=== PATIENT | female | born 1945 | race Caucasian/White ===

== ENCOUNTER 2022-08-30 08:02 | Outpatient (CLI) | payer MEDICARE, SELFPAY ==
--- NOTE | 2022-08-30 08:14 | ECG_ITS ---
Measurements Intervals [employer] Rate: 72 P: 59 IA: 204 QRS: -37 QRSD: 110 T: 36 QT: 390 QTc: 427 Interpretive Statements SINUS RHYTHM MARKED LEFT AXIS DEVIATION [QRS AXIS < -30] VOLTAGE CRITERIA FOR LVH [MEETS CRITERIA IN ONE OF: R(aVL), S(V1), R(V5), R(V5/V6)+S(V1)] NO PREVIOUS ECG AVAILABLE FOR COMPARISON Electronically Signed On 08-30-2022 14:43:58 CDT by Abimael Ash M.D.
[2022-08-30 08:48] LABS: Anion Gap 9 mmol/L (8-16); Blood Urea Nitrogen 16 mg/dL (7-17); Calcium 9.5 mg/dL (8.4-10.2); Carbon Dioxide 29 mmol/L (22-30); Chloride 104 mmol/L (98-107); Estimated Glomerular Filt Rate > 60; Glucose 184 mg/dL (65-110); Potassium 4.2 mmol/L (3.4-5.0); Sodium 142 mmol/L (137-145)
== END 2022-08-30 08:03 | disposition home or self-care (01) ==
LOC: ANHSURGERY 08:07
PROVIDERS: Anesthesiology; PCP Internal Medicine; Visit Provider Orthopaedic Surgery
DX: E11.9 Type 2 diabetes mellitus without complications (principal); Z01.818 Encounter for other preprocedural examination
CPT/HCPCS: 36415; 80048; 93005

== ENCOUNTER 2022-09-03 02:21 | Day surgery (SDC) | payer MEDICARE, SELFPAY ==
[2022-08-23 12:37] VITALS: BMI 39.3
--- NOTE | 2022-08-23 12:50 | PC.NURSE ---
PRE-OP INSTRUCTIONS, PLEASE READ CAREFULLY Report to the Outpatient Waiting Room, entrance under the green pavilion located off [facility], at time _0930_ on date _09/03/22_. OR Time: _1130_. Time changes happen often and if your time is changed the preop area will call you the afternoon before. - You and your visitor will be asked to self-screen and do not enter if you have any COVID symptoms. - Only one visitor and NO children visitors are allowed at this time. - A mask is required within the hospital. Patients may have clear liquids (water, carbonated beverages, clear teas, apple juice) until 3 hours prior to surgery (0830 AM) with a maximum of 20 ounces. - No food from midnight until time of surgery Take the following medications with a SIP of water the morning of surgery: _1/2 DOSE OF AM INSULIN, TYLENOL IF NEEDED__ Medications to discontinue _ASPIRIN PER DR JAMES'S INSTRUCTIONS, BIOTIN 3 DAYS PRIOR PER ANESTHESIA, Date to take last dose 08/28/22_ Please no make-up, nail bengali, hairspray, perfume, deodorant, or body powder the day of surgery. No jewelry (including any body piercings) or valuables the day of surgery, leave them at home. Please take a shower or bath the night before, or the morning of, surgery with an antibacterial soap. Wear comfortable, loose fitting clothing. - Jewelry must be removed prior to entering the operating room. Rings and piercings that are not removed may be cut off. - The hospital will not accept responsibility for valuables. - Please leave all valuables, including medications, at home the day of surgery. If you are going home after surgery, a licensed m48/m60 tank driver must drive you home. - NO public transportation without another adult. - We recommend that an adult stay with you for 24 hours following discharge. - We also recommend that you do not drive, make important decision, drink alcoholic beverages, or take any drugs that were not prescribed by your health care provider for at least 24 hours after your discharge time. Follow any additional instructions given to you from your surgeon. If you or anyone in your household have experienced Covid symptoms in the past week, please notify your surgeon or the nurse liaison at the phone number below for possible testing. Telephone instructions given to __PT___and asked if any additional questions and then verbalized understanding. Patient advised to call surgeon office or pre surgery nurse liaison [phone] if any additional questions.
[2022-09-03] VITALS (9 sets, daily range): BP systolic 125–168; BP diastolic 61–72; PULSE 66–79; RESP 9–18; TEMP 36.6–36.7; O2SAT 95–100
[2022-09-03] MEDS: ACETAMINOPHEN 500 MG TABLET 1000 MG PO (10:20)
--- NOTE | 2022-09-03 10:41 | WPDANESEPPF ---
Anes - Initial Pre Proc Eval Procedure: Operation Date: 09/03/22 11:30 Proposed Procedures p Right Knee Arthroscopy, Partial Meniscectomy - Scott Alcocer MD Date/Time: 09/03/22 10:41 Surgeon: Scott Alcocer MD Pre Op Diagnosis: right Knee medial meniscus tear Patient Data Age: 76 Gender: F Height: 1.68 m Weight: 110.45 kg Allergies Allergy/AdvReac Type Severity Reaction Status Date / Time FD and C no.5 (tartrazine) Allergy Severe difficulty Verified 08/30/22 09:22 breathing methylprednisolone Allergy Intermediate acute Verified 08/30/22 09:22 pancreatitis codeine Allergy Mild nausea Verified 08/30/22 09:22 hydrocodone Allergy Mild vomitting Verified 08/30/22 09:22 hydromorphone [From Dilaudid] Allergy Mild vomitting Verified 08/30/22 09:22 tramadol Allergy Mild vomitting Verified 08/30/22 09:22 tree nut Allergy Mild itching Verified 09/03/22 10:13 Home Medications Medication Instructions Recorded Confirmed Type aspirin 81 mg tablet,delayed 81 mg PO DAILY 02/15/22 09/03/22 History release (Adult Aspirin Regimen) atorvastatin 10 mg tablet 10 mg PO DAILY 02/15/22 09/03/22 History biotin 10,000 mcg disintegrating 10,000 mcg PO DAILY 02/15/22 09/03/22 History tablet insulin lispro 100 unit/mL See Rx Instructions .Route .COMPLEX 02/15/22 09/03/22 History subcutaneous pen (Humalog KwikPen (U-100) Insulin) omeprazole 20 mg tablet,delayed 20 mg PO DAILY 02/15/22 09/03/22 History release acetaminophen 650 mg 650 mg PO Q8H PRN Pain 04/19/22 09/03/22 History tablet,extended release (Tylenol Arthritis Pain) Patient hx anesthesia problems: none Family hx anesthesia problems: none Results Review: All pre-operative results and documents have been reviewed as part of the pre-operative evaluation. [facility] Past Medical History Medical History Allergies Complex tear of medial meniscus of right knee Diabetes Last A1c in January 2022 - 7.8 GERD (gastroesophageal reflux disease) History of DVT (deep vein thrombosis) Osteoarthritis of right knee Thyroid nodule Surgical History Surgical History History of breast biopsy History of cholecystectomy History of partial thyroidectomy Family History Family History Father Alcoholism Mother Depression Anxiety CHF (congestive heart failure) Grandparent Alcoholism Social History Social History Smoking status: Never smoker Second hand tobacco smoke exposure: No Alcohol intake: never Substance use: never Substance use type: does not use Living arrangements: with family Spiritual care concerns: No Anes - Eval Final PreProcedure Day of Procedure 09/03/22 10:41 Patient weight: obese Heart: regular rate and rhythm Lungs: clear to auscultation Airway: Mallampati scale class II Neurological: alert and oriented Last oral intake: >/= 8 hours ASA classification: III Emergent: no Anesthetic plan: proceed Anesthesia type and monitoring: general LMA and standard monitoring Results Review: All pre-operative results and documents have been reviewed as part of the pre-operative evaluation. Informed Consent: The patient's anesthetic plan and its attendant risks and benefits were discussed with the patient/family/POA. Questions were solicited and answers provided to the satisfaction of the patient/family/POA.
[2022-09-03] MEDS: LACTATED RINGERS 1,000 ML 30 ML IV CONT ×2 (10:50→12:59)
[2022-09-03 11:01] LABS: Glucose Point of Care 124 mg/dl (65-105)
[2022-09-03] MEDS: KETOROLAC 15 MG/ML VIAL (*BKC) IV PUSH (11:09)
--- NOTE | 2022-09-03 11:18 | WPDHPUPDATE1 ---
History and Physical Update Update Date/Time: 09/03/22 11:18 History and Physical has been reviewed, including an updated exam of the patient. There are NO changes in the patient's condition. Risks, benefits, and alternatives have been discussed and questions answered. Patient agrees to proceed with procedure.
[2022-09-03] MEDS: ceFAZolin 2 GM/D5W 50 ML 2 GM/50 ML BAG IVPB (11:49)
[2022-09-03] MEDS: LIDOCAINE HCL 1% PF 30 ML VIAL INFILTRATE (12:19)
[2022-09-03 13:00] LABS: Glucose Point of Care 85 mg/dl (65-105)
--- NOTE | 2022-09-03 13:01 | W.PM.PROC2 ---
Procedure Note - Detailed Date of Procedure 09/03/22 Pre-op Diagnosis right Knee medial meniscus tear Post-op Diagnosis Same Procedure Performed Right knee arthroscopy with partial medial meniscectomy Surgeon Scott Alcocer MD Anesthesia General Description of Procedure The patient was identified and proper site identified and she was taken to the operating room, transferred to the OR table placing her supine taking care to pad the torso and extremities. After general anesthetic induction and intubation, a nonsterile tourniquet was placed high on the right thigh but was not inflated. The right lower extremity was positioned, prepped and draped in usual sterile fashion. 10 cc of 1% lidocaine was injected into the subcutaneous tissue in the area of the portals at start of the procedure, and an additional 10 at the end. The portals were established and the arthroscopy was carried out. Articular cartilage anteriorly and medially had extensive grade 2 and three changes. Primarily grade 2 changes laterally. Fraying of the lateral meniscus apically noted but meniscus otherwise stable. Anterior posterior cruciate ligaments in continuity. Complex tearing the medial meniscus from posterior horn into the midbody along with thickened infrapatellar fat pad overlying the anterior horn of the medial meniscus was noted. The unstable meniscus was contoured back to a stable rim with basket forceps and a shaver. The shaver was also used to debride the scarred infrapatellar fat pad. Arthrocare Wand was used for hemostasis. The knee was flushed with a copious amount of arthroscopic fluid and equipment was removed. Portals were closed with three O nylon suture and a sterile dressing was applied. She tolerated the procedure well, was awakened, extubated and taken to recovery area in stable condition. There were no known intraoperative complications. Estimated blood loss was negligible; she received perioperative antibiotics. Estimated Blood Loss 5 Drains No Packing No Pathology None sent Complications No immediate complications Condition Stable Disposition PACU
[2022-09-03] MEDS: fentaNYL CITRATE INJ (*CRX) 100 MCG/2 ML VIAL 25 MCG IV PUSH ×2 (13:44→13:47)
[2022-09-03] MEDS: ONDANSETRON INJ 4 MG/2 ML VIAL IV PUSH (13:51)
== END 2022-09-03 14:56 | disposition home or self-care (01) ==
PROVIDERS: PCP Internal Medicine; Visit Provider Orthopaedic Surgery
PROC: (CPT 29870; principal; 2022-09-03 11:30)
DX: M23.321 Other meniscus derangements, posterior horn of medial meniscus, right knee (principal); E11.9 Type 2 diabetes mellitus without complications; K21.9 Gastro-esophageal reflux disease without esophagitis; Z86.718 Personal history of other venous thrombosis and embolism; E66.9 Obesity, unspecified; Z68.38 Body mass index [BMI] 38.0-38.9, adult; Z79.82 Long term (current) use of aspirin; Z79.4 Long term (current) use of insulin
CPT/HCPCS: 29881; 36415; 80048; 82948; 93005; A9270; J0690; J1885; J2250; J2405; J2704; J3010; J7120

== ENCOUNTER 2023-03-28 10:57 | Outpatient (CLI) | payer MEDICARE, SELFPAY | END 2023-03-28 10:58 | disposition home or self-care (01) | LOC: ANHAUDIO 10:57 | PROVIDERS: PCP Internal Medicine; Visit Provider Otolaryngology | DX: H90.3 Sensorineural hearing loss, bilateral (principal); H61.21 Impacted cerumen, right ear | CPT/HCPCS: 92557; 92567 ==

== ENCOUNTER 2024-05-08 12:42 | Outpatient (CLI) | payer MEDICARE, SELFPAY ==
--- NOTE | ~2024-05-08 | MR_ITS ---
EXAMINATION: MR knee LT wo con DATE: 05/08/2024 13:37 INDICATION: Other tear of medial meniscus, current injury. Left knee pain. TECHNIQUE: Magnetic resonance imaging (MRI) of the left knee was performed without intravenous contra st. Sequences included axial PD-weighted FS FSE, coronal PD-weighted FSE and PD-weighted FS FSE, sagi ttal PD-weighted FSE, and sagittal T2-weighted FS FSE. COMPARISON: Left knee radiographs 05/05/2024 FINDINGS: Medial compartment: There is a radial tear of posterior horn of medial meniscus. There is partial-thickness cartilage los s of femoral condyle, deep of the central articular surface. There is shallow partial-thickness carti maliha loss of tibial condyle. There is subchondral sclerosis in tibial condyle. Osteophytes are noted. Lateral compartment: Lateral meniscus is normal. Lateral compartment cartilage is normal. Osteophytes are noted. Patellofemoral compartment: There is deep partial-thickness cartilage loss of patellar median ridge and lateral facet with mild s ubchondral edema-like signal intensity. There is shallow partial-thickness cartilage loss of patellar medial facet. There is full-thickness cartilage loss of central trochlea with mild subchondral edema -like marrow signal intensity. Osteophytes are noted. Ligaments and tendons: The anterior and posterior cruciate demonstrate normal. Medial collateral ligament and lateral collat eral ligament complex are intact. There is mild patellar tendinopathy. Fluid: There is a small knee joint effusion. There is a small Jacome's cyst. There is mild prepatellar and alexis perficial infrapatellar bursitis. IMPRESSION: 1. Severe chondrosis of patellofemoral compartment and moderate chondrosis of medial compartment. 2. Tear of medial meniscus. 3. Small knee joint effusion. 4. Small Jacome's cyst. Reviewed, dictated and finalized at location E. IMPRESSION: 1. Severe chondrosis of patellofemoral compartment and moderate chondrosis of m edial compartment. 2. Tear of medial meniscus. 3. Small knee joint effusion. 4. Small Jacome's cyst.
== END 2024-05-08 12:43 ==
LOC: GOSHIMG 12:43
PROVIDERS: PCP Internal Medicine; Visit Provider Orthopaedic Surgery
DX: S83.242A Other tear of medial meniscus, current injury, left knee, initial encounter (principal); X58.XXXA Exposure to other specified factors, initial encounter; M71.22 Synovial cyst of popliteal space [Baker], left knee; M25.462 Effusion, left knee
CPT/HCPCS: 73721

== ENCOUNTER 2024-06-22 15:14 | Outpatient (CLI) | payer MEDICARE, SELFPAY ==
--- NOTE | 2024-06-22 15:29 | ECG_ITS ---
Test Date: 2024-06-22 15:42:45 Measurements Intervals [place] Rate: 85 P: 75 TN: 208 QRS: -35 QRSD: 118 T: 55 QT: 353 QTc: 422 Interpretive Statements SINUS RHYTHM LEFT ANTERIOR SUPERIOR HEMIBLOCK VOLTAGE CRITERIA FOR LVH ABNORMAL ECG No previous ECG available for comparison Electronically Signed On 06-22-2024 17:20:40 CDT by Maycol Cortes M.D.
[2024-06-22 16:07] LABS: Anion Gap 9 mmol/L (4-12); Blood Urea Nitrogen 14 mg/dL (7-17); Calcium 9.7 mg/dL (8.4-10.2); Carbon Dioxide 27 mmol/L (22-30); Chloride 104 mmol/L (98-107); Estimated Glomerular Filt Rate > 60; Glucose 100 mg/dL (65-110); Potassium 3.6 mmol/L (3.4-5.0); Sodium 140 mmol/L (137-145)
== END 2024-06-22 15:15 | disposition home or self-care (01) ==
LOC: ANHSURGERY 15:17
PROVIDERS: Anesthesiology; PCP Internal Medicine; Visit Provider Orthopaedic Surgery
DX: E11.9 Type 2 diabetes mellitus without complications (principal); I10 Essential (primary) hypertension; R94.31 Abnormal electrocardiogram [ECG] [EKG]
CPT/HCPCS: 36415; 80048; 93005

== ENCOUNTER 2024-06-24 01:38 | Day surgery (SDC) | payer MEDICARE, SELFPAY ==
[2024-06-22 09:49] VITALS: BMI 40.4
--- NOTE | 2024-06-22 09:50 | PC.NURSE ---
Report to the Outpatient Waiting Room, entrance under the green pavilion located off [facility], at time _0800_ on date _[id number]_. Planned Procedure Time: _1000_. Time changes happen often and if your time is changed the preop area will call you the afternoon before. - You and your visitor will be asked to self-screen and do not enter if you have any COVID symptoms. - A mask is optional within the hospital at this time. Patients may have clear liquids (water, carbonated beverages, clear teas, apple juice) until 3 hours prior to surgery with a maximum of 20 ounces. - No food from midnight until time of surgery Take the following medications with a SIP of water the morning of surgery: No pills and no insulin. DO NOT STOP ANY OF YOUR OTHER PRESCRIPTION MEDICATIONS PRIOR TO SURGERY ?EXCEPT THE FOLLOWING Medications to discontinue per physician ____Biotin, Vitamin D3 and Multivitamin Date to take last dose___Stop now. Please no make-up, nail irish, hairspray, perfume, deodorant, or body powder the day of surgery. No jewelry (including any body piercings) or valuables the day of surgery, leave them at home. Please take a shower or bath the night before, or the morning of, surgery with an antibacterial soap. Wear comfortable, loose fitting clothing. - Jewelry must be removed prior to entering the operating room. Rings and piercings that are not removed may be cut off. - The hospital will not accept responsibility for valuables. - Please leave all valuables, including medications, at home the day of surgery. If you are going home after surgery, a licensed milk pickup driver must drive you home. - NO public transportation without another adult if you receive anesthesia. - We recommend that an adult stay with you for 24 hours following discharge. - We also recommend that you do not drive, make important decision, drink alcoholic beverages, or take any drugs that were not prescribed by your health care provider for at least 24 hours after your discharge time. Follow any additional instructions given to you from your surgeon. If you or anyone in your household have experienced Covid symptoms in the past week, please notify your surgeon or the nurse liaison at the phone number below for possible testing. Telephone instructions given to ___Nancy____and asked if any additional questions and then verbalized understanding. Patient advised to call surgeon office or pre surgery nurse liaison [phone] if any additional questions.
--- NOTE | 2024-06-23 07:18 | PM.IMHP ---
H&P: HPI History of Present Illness Date/Time: 06/23/24 07:18 Chief Complaint: Patient has left-sided knee pain with locking and catching. Has tenderness along the joint line and mechanical-type symptoms. She has failed conservative treatment. She would like to consider knee arthroscopy. Review of Systems Musculoskeletal: Musculoskeletal: Reports arthralgias, Reports joint swelling and Reports stiffness PMFSH Past Medical History Medical History Allergies Diabetes Last A1c in January 2022 - 7.8 GERD (gastroesophageal reflux disease) History of DVT (deep vein thrombosis) Osteoarthritis of right knee Thyroid nodule Surgical History Surgical History Complex tear of medial meniscus of right knee Partial medial meniscectomy September 03, 2022 History of breast biopsy History of cholecystectomy History of partial thyroidectomy Family History Family History Father Alcoholism Mother Depression Anxiety CHF (congestive heart failure) Heart disease Grandparent Alcoholism Hypertension Social History Social History Smoking status: Never smoker Second hand tobacco smoke exposure: No Alcohol intake: never Substance use: never Substance use type: does not use Do You Feel Safe in your Home?: Yes Lack of Transportation: No Lack of Food: Never True Current Housing: I Have Housing Concerned About Future Housing: No Difficulty Paying Gas/Electric Bills: No Difficulty Paying for Meds: No Currently Unemployed: No Education: Associate Degree Difficulty w/ Childcare or Family Care: YES Living arrangements: with family Additional living arrangements comments: PT LIVES WITH [employer] Occupation/Education: retired Spiritual care concerns: No Meds Home Medications and Allergies Home Medications Medication Instructions Recorded Confirmed Type aspirin 81 mg tablet,delayed 81 mg PO DAILY 02/15/22 06/22/24 History release (Adult Aspirin Regimen) atorvastatin 10 mg tablet 10 mg PO DAILY 02/15/22 06/22/24 History biotin 10,000 mcg disintegrating 10,000 mcg PO DAILY 02/15/22 06/22/24 History tablet omeprazole 20 mg tablet,delayed 20 mg PO DAILY 02/15/22 06/22/24 History release acetaminophen 650 mg 650 mg PO Q8H PRN Pain 04/19/22 06/22/24 History tablet,extended release (Tylenol Arthritis Pain) cholecalciferol (vitamin D3) 50 50 mcg PO DAILY 02/26/23 06/22/24 History mcg (2,000 unit) capsule multivitamin 1 tablet PO DAILY 02/26/23 06/22/24 History doxycycline hyclate 20 mg tablet 20 mg PO Q12H 05/05/24 06/22/24 History insulin lispro protamine-lispro See Rx Instructions .Route .COMPLEX 06/22/24 06/22/24 History 100 unit/mL (75-25) subcutaneous pen (Humalog Mix 75-25 KwikPen) losartan 50 mg tablet 50 mg PO DAILY 06/22/24 06/22/24 History Allergies Allergy/AdvReac Type Severity Reaction Status Date / Time FD and C no.5 (tartrazine) Allergy Severe difficulty Verified 06/22/24 09:38 breathing methylprednisolone Allergy Intermediate acute Verified 06/22/24 09:38 pancreatitis codeine Allergy Mild nausea Verified 06/22/24 09:38 hydrocodone Allergy Mild vomitting Verified 06/22/24 09:38 hydromorphone [From Dilaudid] Allergy Mild vomitting Verified 06/22/24 09:38 tramadol Allergy Mild vomitting Verified 06/22/24 09:38 tree nut Allergy Mild itching Verified 06/22/24 09:38 Exam Narrative: On exam she is tender medially has pain to palpation manipulation is mechanical catching and locking neurologically. She is intact she walks with an antalgic gait Radiology Reports: Comments: Patient: Stacy Murcia EXAMINATION: MR knee LT wo con DATE: 05/08/2024 13:37 INDICATION: Other tear of medial meniscus, current injury
[2024-06-24] VITALS (8 sets, daily range): BP systolic 126–159; BP diastolic 59–83; PULSE 70–84; RESP 12–18; TEMP 36.2–36.6; O2SAT 95–99
[2024-06-24 08:59] LABS: Glucose Point of Care 154 mg/dl (65-105)
[2024-06-24] MEDS: LACTATED RINGERS 1,000 ML 30 ML IV CONT (09:07)
[2024-06-24] MEDS: ACETAMINOPHEN 500 MG TABLET 1000 MG PO (09:12)
[2024-06-24] MEDS: KETOROLAC 15 MG/ML VIAL (*BKC) IV PUSH (09:12)
--- NOTE | 2024-06-24 09:43 | WPDHPUPDATE1 ---
History and Physical Update Update Date/Time: 06/24/24 09:43 History and Physical has been reviewed, including an updated exam of the patient. There are NO changes in the patient's condition. Risks, benefits, and alternatives have been discussed and questions answered. Patient agrees to proceed with procedure.
--- NOTE | 2024-06-24 09:59 | WPDANESEPPF ---
Anes - Initial Pre Proc Eval Procedure: Operation Date: 06/24/24 10:00 Proposed Procedures p Left Knee Arthroscopy with Partial Meniscectomy, Proceed As Indicated - Rickie Joy MD Date/Time: 06/24/24 09:59 Surgeon: Rickie Joy MD Pre Op Diagnosis: Lt Knee Medial Meniscal Tear Patient Data Age: 78 Gender: F Height: 1.68 m Weight: 114.8 kg Last Vital Signs Temp 97.8 F 06/24/24 08:21 Pulse 84 06/24/24 08:21 Resp 18 06/24/24 08:21 BP 159/69 H 06/24/24 08:21 Pulse Ox 98 06/24/24 08:21 O2 Del Method Room Air 06/24/24 08:21 Allergies Allergy/AdvReac Type Severity Reaction Status Date / Time FD and C no.5 (tartrazine) Allergy Severe difficulty Verified 06/24/24 08:27 breathing methylprednisolone Allergy Intermediate acute Verified 06/24/24 08:27 pancreatitis codeine Allergy Mild nausea Verified 06/24/24 08:27 hydrocodone Allergy Mild vomitting Verified 06/24/24 08:27 hydromorphone [From Dilaudid] Allergy Mild vomitting Verified 06/24/24 08:27 tramadol Allergy Mild vomitting Verified 06/24/24 08:27 tree nut Allergy Mild itching Verified 06/24/24 08:27 Home Medications Medication Instructions Recorded Confirmed Type aspirin 81 mg tablet,delayed 81 mg PO DAILY 02/15/22 06/24/24 History release (Adult Aspirin Regimen) atorvastatin 10 mg tablet 10 mg PO DAILY 02/15/22 06/24/24 History biotin 10,000 mcg disintegrating 10,000 mcg PO DAILY 02/15/22 06/24/24 History tablet omeprazole 20 mg tablet,delayed 20 mg PO DAILY 02/15/22 06/24/24 History release acetaminophen 650 mg 650 mg PO Q8H PRN Pain 04/19/22 06/24/24 History tablet,extended release (Tylenol Arthritis Pain) cholecalciferol (vitamin D3) 50 50 mcg PO DAILY 02/26/23 06/24/24 History mcg (2,000 unit) capsule multivitamin 1 tablet PO DAILY 02/26/23 06/24/24 History doxycycline hyclate 20 mg tablet 20 mg PO Q12H 05/05/24 06/24/24 History insulin lispro protamine-lispro See Rx Instructions .Route .COMPLEX 06/22/24 06/24/24 History 100 unit/mL (75-25) subcutaneous pen (Humalog Mix 75-25 KwikPen) losartan 50 mg tablet 50 mg PO DAILY 06/22/24 06/24/24 History Laboratory Tests 06/24/24 08:55 POC Capillary Glucose 154 H mg/dl (65-105) Patient hx anesthesia problems: none Family hx anesthesia problems: none Results Review: All pre-operative results and documents have been reviewed as part of the pre-operative evaluation. ON LICENSE OF [facility] Past Medical History Medical History Allergies Diabetes Last A1c in January 2022 - 7.8 GERD (gastroesophageal reflux disease) History of DVT (deep vein thrombosis) Osteoarthritis of right knee Thyroid nodule Surgical History Surgical History Complex tear of medial meniscus of right knee Partial medial meniscectomy September 03, 2022 History of breast biopsy History of cholecystectomy History of partial thyroidectomy Family History Family History Father Alcoholism Mother Depression Anxiety CHF (congestive heart failure) Heart disease Grandparent Alcoholism Hypertension Social History Social History Smoking status: Never smoker Second hand tobacco smoke exposure: No Alcohol intake: never Substance use: never Substance use type: does not use Do You Feel Safe in your Home?: Yes Lack of Transportation: No Lack of Food: Never True Current Housing: I Have Housing Concerned About Future Housing: No Difficulty Paying Gas/Electric Bills: No Difficulty Paying for Meds: No Currently Unemployed: No Education: Associate Degree Difficulty w/ Childcare or Family Care: YES Living arrangements: with family Additional living arrangements comments: PT LIVES WITH [employer] Occupation/Educ
[2024-06-24] MEDS: ceFAZolin 2 GM/D5W 50 ML 2 GM/50 ML BAG IVPB (10:30)
[2024-06-24] MEDS: LIDO 1%/EPINEPHRINE 1:100,000 50 ML VIAL INFILTRATE (10:47)
--- NOTE | 2024-06-24 11:08 | W.PM.PROC2 ---
Procedure Note - Detailed Date of Procedure 06/24/24 Pre-op Diagnosis Left Knee Medial Meniscal Tear Post-op Diagnosis Same Procedure Performed LEFT knee arthroscopy with partial meniscectomy Surgeon Rickie Joy MD Anesthesia General Indications Pain and Catching. Description of Procedure Patient brought to operating room # 7. An anesthetic was administered. The knee was sterilely prepped and draped in the usual manner. Standard portals were used. Superior medial portal was used for the outflow cannula, inferior lateral portal was used for the scope, inferior medial portal was used for the instruments. Arthroscopy was performed, the patellar femoral joint degenerative changes. The medial compartment showed a complex tear. The lateral compartment showed fraying. The ACL was intact. Using baskets and yane the meniscal tear was trimmed back to a stable base so the nothing further could be pulled into the joint. Any loose or delaminated fragments were gently trimmed to a stable base. At this point the instruments were withdrawn, sutures placed and patient left the operating room in satisfactory condition. The plica was debrided as well. Estimated Blood Loss 20 Drains No Packing No Pathology None sent Complications No immediate complications Condition Stable Disposition PACU [facility] Billing Surgery - Charge Forward: Surgery Billing ([id number] Arthroscopy Partial Meniscectomy)
[2024-06-24 11:27] LABS: Glucose Point of Care 147 mg/dl (65-105)
== END 2024-06-24 13:26 | disposition home or self-care (01) ==
PROVIDERS: PCP Internal Medicine; Visit Provider Orthopaedic Surgery
PROC: (CPT 29870; principal; 2024-06-24 10:00)
DX: M23.332 Other meniscus derangements, other medial meniscus, left knee (principal); M17.12 Unilateral primary osteoarthritis, left knee; E11.9 Type 2 diabetes mellitus without complications; K21.9 Gastro-esophageal reflux disease without esophagitis; Z86.718 Personal history of other venous thrombosis and embolism; E66.01 Morbid (severe) obesity due to excess calories; Z68.41 Body mass index [BMI] 40.0-44.9, adult; Z79.82 Long term (current) use of aspirin; Z79.4 Long term (current) use of insulin
CPT/HCPCS: 29881; 82948; A9270; J0690; J1885; J2405; J2704; J3010; J7120